=== PATIENT | male | born 1985 | race Caucasian/White ===

== ENCOUNTER 2016-12-12 14:36 | Outpatient (CLI) | payer BC ==
[2016-12-12 19:54] LABS: CALCIUM 9.5 mg/dL (8.5-10.3); CREATININE 0.9 mg/dL (0.6-1.2); POTASSIUM 4.5 mmol/L (3.5-5.0)
[2016-12-12 20:17] LABS: HEMOGLOBIN A1C 0.47 g/dL
== END 2016-12-12 14:37 | disposition home or self-care (01) ==
LOC: LAB.F 14:36
PROVIDERS: ATTEND Internal Medicine
DX: R35.8 Other polyuria (principal)
CPT/HCPCS: 36415; 80048; 83036